=== PATIENT | female | born 1955 | race Caucasian/White ===

== ENCOUNTER 2018-06-10 10:18 | Emergency (ER) | payer BC ==
--- NOTE | 2018-06-10 11:23 | ED Physician Chart ---
ED Chief Complaint/HPI - Patient Information Date Seen:: 06/10/18 Time Seen:: 11:00 Chief Complaint:: rt big toe pain History of Present Illness:: 62 yr old female with rt big toe pain reddness soreness for one day after eating much beef no other c/o has hx of gout and takes alloprinol without relief Allergies:: Allergies Allergy/AdvReac Type Severity Reaction Status Date / Time antihistamine Allergy Uncoded 06/10/18 10:27 Vitals:: Vital Signs - 8 hr 06/10/18 06/10/18 10:18 11:01 Temp 97.1 F 97.1 F HR 76 76 RR 16 16 BP 110/74 110/74 O2 Sat % 100 100 ED Review of Systems - Review of Systems General/Constitutional: No fever Skin: Other (swollen red rt big toe bunion) Head: No headache Eyes: No loss of vision ENT: No earache Neck: No neck pain Cardio Vascular: No chest pain Pulmonary: SOB GI: No nausea, No vomiting G/U: No dysuria Drying Oven Attendant: No vaginal discharge Musculoskeletal: Bone or joint pain Endocrine: No polyuria Psychiatric: No prior psych history, Anxiety Hematopoietic: No bruising Allergic/Immuno: No urticaria Neurological: No syncope Family Medical History - Family Member Mother History Unknown: Yes ED Septic Shock - . Is Septic Shock (SBP<90, OR Lactate>4 mmol\L) present?: No - <6hrs of presentation: Vital Signs: Vital Signs - 8 hr 06/10/18 06/10/18 10:18 11:01 Temp 97.1 F 97.1 F HR 76 76 RR 16 16 BP 110/74 110/74 O2 Sat % 100 100
== END 2018-06-10 11:25 | disposition home or self-care (01) ==
LOC: ER 10:18
DX: M10.9 Gout, unspecified (principal); M19.071 Primary osteoarthritis, right ankle and foot; F41.9 Anxiety disorder, unspecified; Z88.8 Allergy status to other drugs, medicaments and biological substances
CPT/HCPCS: 99283; 96372; J1885; Z7502